=== PATIENT | female | born 1990 | race Hispanic/Latino ===

== ENCOUNTER 2017-10-06 16:18 | Inpatient (IN) | payer BC ==
--- NOTE | 2017-10-06 16:58 | ED PDOC ---
HPI: Abdomen Time Seen by Provider: 10/06/17 16:57 Chief Complaint (Nursing): Abdominal Pain Chief Complaint (Provider): abd pain History Per: Patient Additional Complaint(s): 27-year-old female presents to emergency department with epigastric abdominal pain associated with fever and diarrhea that started last night. Patient states she feels spasming pain to upper abdomen since yesterday. She denies any nausea or vomiting, no dysuria or hematuria. Patient states that she took her tetanus morning and it was 103. She took Advil at 1 PM today. PMD: none Past Medical History Reviewed: Historical Data, Nursing Documentation, Vital Signs Vital Signs: Last Vital Signs Temp 98.8 F 10/06/17 21:34 Pulse 106 H 10/06/17 21:34 Resp 16 10/06/17 21:34 BP 105/66 10/06/17 21:34 Pulse Ox 98 10/06/17 21:49 - Medical History PMH: GERD - Surgical History Other surgeries: left leg surgery - Family History Family History: States: No Known Family Hx - Living Arrangements Living Arrangements: With Family - Social History Current smoker - smoking cessation education provided: No Alcohol: Social Drugs: Denies - Home Medications Home Medications: Ambulatory Orders Medication Instructions Recorded DULoxetine [Cymbalta] 30 mg PO DAILY 10/06/17 - Allergies Allergies/Adverse Reactions: Allergies Allergy/AdvReac Type Severity Reaction Status Date / Time No Known Allergies Allergy Verified 10/06/17 16:39 Review of Systems ROS Statement: Except As Marked, All Systems Reviewed And Found Negative Constitutional: Positive for: Fever, Chills Cardiovascular: Negative for: Chest Pain Respiratory: Negative for: Cough Gastrointestinal: Positive for: Abdominal Pain, Diarrhea. Negative for: Nausea , Vomiting, Constipation Genitourinary Female: Negative for: Dysuria, Vaginal Discharge, Vaginal Bleeding Physical Exam - Reviewed Nursing Documentation Reviewed: Yes Vital Signs Reviewed: Yes - Physical Exam Appears: Positive for: Well, Non-toxic, No Acute Distress Skin: Positive for: Normal Color. Negative for: Rash Eye Exam: Positive for: Normal appearance Neck: Positive for: Normal Cardiovascular/Chest: Positive for: Regular Rate, Rhythm Respiratory: Positive for: Normal Breath Sounds Gastrointestinal/Abdominal: Positive for: Other (Moderate tenderness to epigastric region and right upper quadrant, no distention or guarding, no rebound, otherwise abdomen is nontender, normoactive bowel sounds in all 4 quadrant) Back: Negative for: L CVA Tenderness, R CVA Tenderness Extremity: Positive for: Normal ROM Neurologic/Psych: Positive for: Alert, Oriented - Laboratory Results Result Diagrams: 10/06/17 17:50 10/06/17 17:50 Urine POC: Negative - ECG O2 Sat by Pulse Oximetry: 98 Pulse Ox Interpretation: Normal - Other Rad CT abd and pelvis with IV contrast X-Ray: Read By Radiologist X-Ray Interpretation: see below CXR X-Ray: Interpreted by Me, Viewed By Me X-Ray Interpretation: no acute finding Medical Decision Making Medical Decision Makin27 year old with fever, diarrhea and abd pain, temp of 101.4 noted Plan: Urine dip and preg CBC CMP Lipase Blood culture VBG CXR CT abd and pelvis with IV contrast PO tylenol and motrin WBC count is 18.4, UTI noted, 1 gram IV rocephin given CT: FINDINGS: Lower thorax: There is minimal bibasilar atelectatic change or scarring. ABDOMEN: Liver: There is a heterogeneously enhancing mass lesion in the right lobe of the liver which is wellcircumscribed and measures a maximum of 8.8 cm. Recommend follow-up abdominal CT or MR in 6 months for patients with low risk of malignancy, multiphasic MR for average risk patients and core biopsy for high risk patients. Gallbladder and bile ducts: Normal. No calcified stones. No ductal dilation. Pancreas: Normal. No ductal dilation. Spleen: Normal. No splenomegaly. Adrenals: Normal. No mass. Kidneys and ureters: There is a low attenuation lesion of the left kidney that is too small to characterize measuring a maximum of 7 mm. Stomach and bowel: There is abnormal wall thickening mainly in the proximal colon and extending through the transverse colon, suspicious for nonspecific colitis. Appendix: The appendix is not visible. PELVIS: Bladder: Unremarkable as visualized. Reproductive: Unremarkable as visualized. ABDOMEN and PELVIS: Intraperitoneal space: Normal. No free air. No significant fluid collection. Bones/joints: No acute fracture. No dislocation. Soft tissues: Unremarkable. Vasculature: Normal. No abdominal aortic aneurysm. Lymph nodes: There are prominent right lower quadrant mesenteric lymph nodes consistent with mesenteric adenitis. IMPRESSION: 1. There are prominent right lower quadrant mesenteric lymph nodes consistent with mesenteric adenitis. 2. There is abnormal wall thickening mainly in the proximal colon and extending through the transverse colon, suspicious for nonspecific colitis. 3. There is a heterogeneously enhancing mass lesion in the right lobe of the liver which is well circumscribed and measures a maximum of 8.8 cm. Recommend follow-up abdominal CT or MR in 6 months for patients with low risk of malignancy, multiphasic MR for average risk patients and core biopsy for high risk patients. Above results were discussed with Dr. Peters and patient was made aware of results as well. Patient agrees with admission. Patient already received 1 g IV Rocephin, IV vancomycin also ordered. Case discussed with surgical assistant Dr. Noriega who will also see patient. Case also discussed withenterologist acting section chief Dr. Dean Quiles who will consult patient as well. Disposition - Clinical Impression Clinical Impression: Colitis, Urinary tract infection, Liver mass, Sepsis - Patient ED Disposition Is Patient to be Admitted: Yes - Disposition Disposition Time: 21:47 Condition: FAIR - Pt Status Changed To: Hospital Disposition Of: Inpatient - Admit Certification Admit to Inpatient:: After my assessment, the patient will require hospitalization for at least two midnights. This is because of the severity of symptoms shown, intensity of services needed, and/or the medical risk in this patient being treated as an outpatient. Results - Lab Results Lab Results: 10/06/17 10/06/17 10/06/17 17:50 17:50 17:50 WBC 18.4 H RBC 4.75 Hgb 13.1 Hct 38.9 MCV 81.8 MCH 27.5 MCHC 33.7 RDW 13.2 Plt Count 232 MPV 7.6 Neut % (Auto) 86.0 H Lymph % (Auto) 6.2 L [place] % (Auto) 7.5 Eos % (Auto) 0.1 Baso % (Auto) 0.2 Neut # (Auto) 15.8 H Lymph # (Auto) 1.1 [place] # (Auto) 1.4 H Eos # (Auto) 0.0 Baso # (Auto) 0.0 Neutrophils % (Manual) 75 Band Neutrophils % 3 H Lymphocytes % (Manual) 12 L Monocytes % (Manual) 10 Platelet Estimate Normal Hypochromasia (manual) Slight Microcytosis (manual) Slight pO2 38 VBG pH 7.42 VBG pCO2 35 L VBG HCO3 23.3 VBG Total CO2 23.8 VBG O2 Sat (Calc) 85.0 H VBG Base Excess -1.3 L VBG Potassium 3.4 L Sodium 131.0 L 137 Chloride 99.0 99 Glucose 102 Lactate 1.5 FiO2 21.0 Potassium 3.9 Carbon Dioxide 24 Anion Gap 18 BUN 8 Creatinine 0.8 Est GFR ( Amer) > 60 Est GFR (Non-Af Amer) > 60 Random Glucose 99 Calcium 9.2 Total Bilirubin 0.4 AST 29 ALT 35 Alkaline Phosphatase 444 H Total Protein 7.4 Albumin 4.2 Globulin 3.2 Albumin/Globulin Ratio 1.3 Lipase 68 Venous Blood Potassium 3.4 L Urine Color Urine Clarity Urine pH Ur Specific [place] Urine Protein Urine Glucose (UA) Urine Ketones Urine Blood Urine Nitrate Urine Bilirubin Urine Urobilinogen Ur Leukocyte Esterase Urine RBC (Auto) Urine Microscopic WBC Ur Squamous Epith Cells Urine Bacteria 10/06/17 17:12 WBC RBC Hgb Hct MCV MCH MCHC RDW Plt Count MPV Neut % (Auto) Lymph % (Auto) [place] % (Auto) Eos % (Auto) Baso % (Auto) Neut # (Auto) Lymph # (Auto) [place] # (Auto) Eos # (Auto) Baso # (Auto) Neutrophils % (Manual) Band Neutrophils % Lymphocytes % (Manual) Monocytes % (Manual) Platelet Estimate Hypochromasia (manual) Microcytosis (manual) pO2 VBG pH VBG pCO2 VBG HCO3 VBG Total CO2 VBG O2 Sat (Calc) VBG Base Excess VBG Potassium Sodium Chloride Glucose Lactate FiO2 Potassium Carbon Dioxide Anion Gap BUN Creatinine Est GFR ( Amer) Est GFR (Non-Af Amer) Random Glucose Calcium Total Bilirubin AST ALT Alkaline Phosphatase Total Protein Albumin Globulin Albumin/Globulin Ratio Lipase Venous Blood Potassium Urine Color Yellow Urine Clarity Cloudy Urine pH 6.0 Ur Specific [place] 1.018 Urine Protein Negative Urine Glucose (UA) Neg Urine Ketones 20 Urine Blood Negative Urine Nitrate Negative Urine Bilirubin Negative Urine Urobilinogen 0.2-1.0 Ur Leukocyte Esterase Large Urine RBC (Auto) 2 Urine Microscopic WBC 51 H Ur Squamous Epith Cells 14 H Urine Bacteria Occ H
[2017-10-06] MEDS ORDERED: Sodium Chloride 0.9% 1,000 ML IV STA ×2 (17:16→19:00)
[2017-10-06 18:08] LABS: BASO % 0.2 % (0.0-2.0); EOS % 0.1 % (0.0-4.0); HEMOGLOBIN 13.1 g/dL (12.0-16.0); LYMPH # 1.1 K/uL (1.0-4.3); LYMPH % 6.2 % (20.0-40.0); MEAN CELL VOLUME 81.8 fl (81.0-99.0); MEAN CORPUSCULAR HEMOGLOBIN 27.5 pg (27.0-31.0); MEAN CORPUSCULAR HGB CONC 33.7 g/dL (33.0-37.0); MEAN PLATELET VOLUME 7.6 fl (7.2-11.7); MONO # 1.4 K/uL (0.0-0.8); MONO % 7.5 % (0.0-10.0); NEUT # 15.8 K/uL (1.8-7.0); PLATELET COUNT 232 K/uL (130-400); RBC 4.75 Mil/uL (3.80-5.20); RED CELL DISTRIBUTION WIDTH 13.2 % (11.5-14.5); WHITE BLOOD COUNT 18.4 K/uL (4.8-10.8)
[2017-10-06 18:11] LABS: ALB/GLOB RATIO 1.3 (1.0-2.1); ALBUMIN 4.2 g/dL (3.5-5.0); ALT/SGPT 35 U/L (9-52); AST/SGOT 29 U/L (14-36); BLOOD UREA NITROGEN 8 mg/dl (7-17); CALCIUM 9.2 mg/dL (8.4-10.2); GFR AFRICAN-AMERICAN > 60; GFR NON-AFRICAN AMERICAN > 60; LIPASE 68 U/L (23-300)
[2017-10-06 18:13] LABS: SQUAMOUS EPITHIAL 14 /hpf (0-5); URINE BACTERIA OCC (<OCC); URINE BILIRUBIN NEGATIVE (NEGATIVE); URINE BLOOD NEGATIVE (NEGATIVE); URINE CLARITY CLOUDY (Clear); URINE COLOR YELLOW (YELLOW); URINE GLUCOSE (UA) NEG (Normal); URINE LEUKOCYTE ESTERASE LARGE Leu/uL (Negative); URINE PROTEIN NEGATIVE (NEGATIVE); URINE UROBILINOGEN 0.2-1.0 mg/dL (0.2-1.0)
[2017-10-06] MEDS ORDERED: Sodium Chloride 0.9% 50 ML IV ONE (18:24)
[2017-10-06] MEDS ORDERED: Iohexol 300 100 ML IJ ONE (18:24)
--- NOTE | 2017-10-06 18:48 | RAD ---
Date of service: 10/06/2017 HISTORY: fever COMPARISON: No prior. FINDINGS: LUNGS: No active pulmonary disease. PLEURA: No significant pleural effusion identified, no pneumothorax apparent. CARDIOVASCULAR: Normal. OSSEOUS STRUCTURES: No significant abnormalities. VISUALIZED UPPER ABDOMEN: Normal. OTHER FINDINGS: None. IMPRESSION: No acute cardiopulmonary disease appreciated.
[2017-10-06 18:54] LABS: VENOUS BLOOD GAS BASE EXCESS -1.3 mmol/L (0.0-2.0); VENOUS BLOOD GAS PCO2 35 mmHg (40-60); VENOUS BLOOD GAS PO2 38 mm/Hg (30-55); VENOUS BLOOD PH 7.42 (7.32-7.43)
[2017-10-06] MEDS ORDERED: cefTRIAXone (Rocephin) 1 gm Inj ONE (19:09)
[2017-10-06 19:38] LABS: BANDS 3 % (0-2); HYPOCHROMIC SLIGHT; LYMPHOCYTE 12 % (20-50); MICROCYTOSIS SLIGHT; MONOCYTE 10 % (0-10); NEUTROPHIL 75 % (42-75); PLATELET ESTIMATE NORMAL (NORMAL); TOTAL CELLS COUNTED 100
[2017-10-06] MEDS ORDERED: Vancomycin 1 g Inj ONE (21:44)
--- NOTE | 2017-10-06 23:03 | CP.PCM.CON ---
<Marilee Noriega - Last Filed: 10/06/17 23:15> History of Present Illness - History of Present Illness History of Present Illness: General Surgery - Dr. Varner 27yo F w/ hx of Fibromyalgia, GERD, presents with abdominal pain and diarrhea x2days. Pt states the pain started yesterday morning shortly after she woke up. She describes it as burning/cramping-like pains located in the epigastric region, 7/10, non-radiating, intermittently comes and goes about every 15 minutes. She has never had this before. She admits to associated diarrhea every 2-3 hours which she describes as watery brown stool. Pt denies any Nausea /Vomiting, Dysuria/Hematuria, SOB/Chest pain. She denies subjective Fever/ Chills but has Temp of 101.4 on arrival to ED. PMH: Fibromyalgia, GERD, Anxiety PSH: R breast implant for Hypomastia, Left leg surgery after a fall, EGD 2 months ago which was normal per Pt. Meds: Cymbalta, Omeprazole, Oral Contraceptive pill NKDA Social: No smoking, Occasional ETOH socially, No ilicit drug use Family: Both parents with history of liver hemangiomas, brother with brain aneurysm Pt was seen in the ED. Vitals w/ Tmax 101.4, HR 100-130, BP wnl. Labs significant for WBC of 18.2, Alk Phos 444. CT abdomen/pelvis with IV contrast shows colitis of the ascending and transverse colon, mesenteric adenitis, and an 8.8cm heterogenous well-circumscribed hepatic mass in the R lobe of the liver. Review of Systems - Review of Systems All systems: reviewed and no additional remarkable complaints except (as per HPI ) Past Patient History - Past Social History Alcohol: Social Drugs: Denies - PULMONARY Hx Asthma: Yes (exercise induced) - PSYCHIATRIC Hx Anxiety: Yes Hx Substance Use: No - SURGICAL HISTORY Other/Comment: Right breast implant. Left tibia sx due to severed muscles - ANESTHESIA Hx Anesthesia: Yes Meds Allergies/Adverse Reactions: Allergies Allergy/AdvReac Type Severity Reaction Status Date / Time No Known Allergies Allergy Verified 10/06/17 16:39 Physical Exam - Constitutional Appears: Well, No Acute Distress - Head Exam Head Exam: ATRAUMATIC, NORMAL INSPECTION, NORMOCEPHALIC - Eye Exam Eye Exam: Normal appearance - ENT Exam ENT Exam: Mucous Membranes Dry - Respiratory Exam Respiratory Exam: NORMAL BREATHING PATTERN. absent: Respiratory Distress - Cardiovascular Exam Cardiovascular Exam: Tachycardia, REGULAR RHYTHM - GI/Abdominal Exam GI & Abdominal Exam: Soft, Tenderness (mild ttp epigastric region). absent: Distended, Firm, Guarding, Hernia, Rebound, Rigid - Neurological Exam Neurological exam: Alert, Oriented x3 - Psychiatric Exam Psychiatric exam: Normal Affect, Normal Mood - Skin Skin Exam: Dry, Intact Results - Vital Signs Recent Vital Signs: Last Vital Signs Temp 98.8 F 10/06/17 22:55 Pulse 106 H 10/06/17 22:55 Resp 16 10/06/17 22:55 BP 105/66 10/06/17 22:55 Pulse Ox 98 10/06/17 22:02 - Labs Result Diagrams: 10/06/17 17:50 10/06/17 17:50 Labs: Laboratory Results - last 24 hr 10/06/17 10/06/17 10/06/17 17:12 17:50 17:50 WBC RBC Hgb Hct MCV MCH MCHC RDW Plt Count MPV Neut % (Auto) Lymph % (Auto) [place] % (Auto) Eos % (Auto) Baso % (Auto) Neut # (Auto) Lymph # (Auto) [place] # (Auto) Eos # (Auto) Baso # (Auto) Neutrophils % (Manual) Band Neutrophils % Lymphocytes % (Manual) Monocytes % (Manual) Platelet Estimate Hypochromasia (manual) Microcytosis (manual) pO2 38 VBG pH 7.42 VBG pCO2 35 L VBG HCO3 23.3 VBG Total CO2 23.8 VBG O2 Sat (Calc) 85.0 H VBG Base Excess -1.3 L VBG Potassium 3.4 L Sodium 137 131.0 L Chloride 99 99.0 Glucose 102 Lactate 1.5 FiO2 21.0 Potassium 3.9 Carbon Dioxide 24 Anion Gap 18 BUN 8 Creatinine 0.8 Est GFR ( Amer) > 60 Est GFR (Non-Af Amer) > 60 Random Glucose 99 Calcium 9.2 Total Bilirubin 0.4 AST 29 ALT 35 Alkaline Phosphatase 444 H Total Protein 7.4 Albumin 4.2 Globulin 3.2 Albumin/Globulin Ratio 1.3 Lipase 68 Venous Blood Potassium 3.4 L Urine Color Yellow Urine Clarity Cloudy Urine pH 6.0 Ur Specific [place] 1.018 Urine Protein Negative Urine Glucose (UA) Neg Urine Ketones 20 Urine Blood Negative Urine Nitrate Negative Urine Bilirubin Negative Urine Urobilinogen 0.2-1.0 Ur Leukocyte Esterase Large Urine RBC (Auto) 2 Urine Microscopic WBC 51 H Ur Squamous Epith Cells 14 H Urine Bacteria Occ H 10/06/17 17:50 WBC 18.4 H RBC 4.75 Hgb 13.1 Hct 38.9 MCV 81.8 MCH 27.5 MCHC 33.7 RDW 13.2 Plt Count 232 MPV 7.6 Neut % (Auto) 86.0 H Lymph % (Auto) 6.2 L [place] % (Auto) 7.5 Eos % (Auto) 0.1 Baso % (Auto) 0.2 Neut # (Auto) 15.8 H Lymph # (Auto) 1.1 [place] # (Auto) 1.4 H Eos # (Auto) 0.0 Baso # (Auto) 0.0 Neutrophils % (Manual) 75 Band Neutrophils % 3 H Lymphocytes % (Manual) 12 L Monocytes % (Manual) 10 Platelet Estimate Normal Hypochromasia (manual) Slight Microcytosis (manual) Slight pO2 VBG pH VBG pCO2 VBG HCO3 VBG Total CO2 VBG O2 Sat (Calc) VBG Base Excess VBG Potassium Sodium Chloride Glucose Lactate FiO2 Potassium Carbon Dioxide Anion Gap BUN Creatinine Est GFR ( Amer) Est GFR (Non-Af Amer) Random Glucose Calcium Total Bilirubin AST ALT Alkaline Phosphatase Total Protein Albumin Globulin Albumin/Globulin Ratio Lipase Venous Blood Potassium Urine Color Urine Clarity Urine pH Ur Specific [place] Urine Protein Urine Glucose (UA) Urine Ketones Urine Blood Urine Nitrate Urine Bilirubin Urine Urobilinogen Ur Leukocyte Esterase Urine RBC (Auto) Urine Microscopic WBC Ur Squamous Epith Cells Urine Bacteria - Imaging and Cardiology CT scan - abdomen Status: Image reviewed by me, Report reviewed by me Assessment & Plan - Assessment and Plan (Free Text) Assessment: 27yo F w/ colitis and 8.8cm R hepatic mass -Admitted to medical service -Continue IVF, ABx, Pain control for colitis -No surgical intervention needed at this time -Recommend MRI to further characterize liver lesion -Recommend stopping OCPs given likelihood of hepatic adenoma -If pt remains asymptomatic, can follow w/ repeat imaging in 3-6months DW Dr. Telly Noriega PGY4 <Rosie Varner - Last Filed: 10/07/17 11:03> Meds - Medications Medications: Current Medications Acetaminophen (Tylenol 325mg Tab) 650 mg PO Q4 PRN PRN Reason: Fever >100.4 F Last Admin: 10/07/17 05:12 Dose: 650 mg Acetaminophen/Butalbital/Caffeine (Fioricet) 1 tab PO Q4 PRN PRN Reason: Headache Duloxetine HCl (Cymbalta) 30 mg PO DAILY [facility] Potassium Chloride (Potassium Chloride 20 Meq/100 Ml) 100 mls @ 50 mls/hr IVPB Q2 KAELYN Stop: 10/07/17 11:59 Last Admin: 10/07/17 10:00 Dose: 50 mls/hr Metronidazole (Flagyl 500mg/100ml Ns) 100 mls @ 100 mls/hr IVPB Q8 KAELYN PRN Reason: Protocol Potassium Chloride/Dextrose/Sod Cl (Potassium Chl 20 Meq In D5-1/2ns) 1,000 mls @ 125 mls/hr IV .Q8H [facility] Stop: 10/08/17 08:19 Last Admin: 10/07/17 09:00 Dose: 125 mls/hr Ciprofloxacin (Cipro 400mg/200ml Dsw) 400 mg in 200 mls @ 200 mls/hr IVPB Q12 KAELYN PRN Reason: Protocol Morphine Sulfate (Morphine) 2 mg IVP Q4 PRN PRN Reason: Pain, moderate (4-7) Last Admin: 10/07/17 06:48 Dose: 2 mg Pantoprazole Sodium (Protonix Inj) 40 mg IVP DAILY [facility] Results - Vital Signs Recent Vital Signs: Last Vital Signs Temp 98.3 F 10/07/17 08:00 Pulse 102 H 10/07/17 08:00 Resp 20 10/07/17 08:00 BP 105/70 10/07/17 08:00 Pulse Ox 98 10/07/17 08:00 - Labs Result Diagrams: 10/07/17 04:20 10/07/17 04:20 Labs: Laboratory Results - last 24 hr 10/06/17 10/06/17 10/06/17 17:12 17:50 17:50 WBC RBC Hgb Hct MCV MCH MCHC RDW Plt Count MPV Neut % (Auto) Lymph % (Auto) [place] % (Auto) Eos % (Auto) Baso % (Auto) Neut # (Auto) Lymph # (Auto) [place] # (Auto) Eos # (Auto) Baso # (Auto) Neutrophils % (Manual) Band Neutrophils % Lymphocytes % (Manual) Monocytes % (Manual) Platelet Estimate Hypochromasia (manual) Microcytosis (manual) pO2 38 VBG pH 7.42 VBG pCO2 35 L VBG HCO3 23.3 VBG Total CO2 23.8 VBG O2 Sat (Calc) 85.0 H VBG Base Excess -1.3 L VBG Potassium 3.4 L Sodium 137 131.0 L Chloride 99 99.0 Glucose 102 Lactate 1.5 FiO2 21.0 Potassium 3.9 Carbon Dioxide 24 Anion Gap 18 BUN 8 Creatinine 0.8 Est GFR ( Amer) > 60 Est GFR (Non-Af Amer) > 60 Random Glucose 99 Calcium 9.2 Total Bilirubin 0.4 AST 29 ALT 35 Alkaline Phosphatase 444 H Total Protein 7.4 Albumin 4.2 Globulin 3.2 Albumin/Globulin Ratio 1.3 Lipase 68 Venous Blood Potassium 3.4 L Urine Color Yellow Urine Clarity Cloudy Urine pH 6.0 Ur Specific [place] 1.018 Urine Protein Negative Urine Glucose (UA) Neg Urine Ketones 20 Urine Blood Negative Urine Nitrate Negative Urine Bilirubin Negative Urine Urobilinogen 0.2-1.0 Ur Leukocyte Esterase Large Urine RBC (Auto) 2 Urine Microscopic WBC 51 H Ur Squamous Epith Cells 14 H Urine Bacteria Occ H C. difficile Ag & Toxin 10/06/17 10/07/17 10/07/17 17:50 04:20 04:20 WBC 18.4 H 12.2 H RBC 4.75 4.16 Hgb 13.1 11.5 L Hct 38.9 34.2 MCV 81.8 82.2 MCH 27.5 27.6 MCHC 33.7 33.6 RDW 13.2 13.3 Plt Count 232 185 MPV 7.6 7.5 Neut % (Auto) 86.0 H 82.8 H Lymph % (Auto) 6.2 L 7.6 L [place] % (Auto) 7.5 9.1 Eos % (Auto) 0.1 0.2 Baso % (Auto) 0.2 0.3 Neut # (Auto) 15.8 H 10.1 H Lymph # (Auto) 1.1 0.9 L [place] # (Auto) 1.4 H 1.1 H Eos # (Auto) 0.0 0.0 Baso # (Auto) 0.0 0.0 Neutrophils % (Manual) 75 Band Neutrophils % 3 H Lymphocytes % (Manual) 12 L Monocytes % (Manual) 10 Platelet Estimate Normal Hypochromasia (manual) Slight Microcytosis (manual) Slight pO2 VBG pH VBG pCO2 VBG HCO3 VBG Total CO2 VBG O2 Sat (Calc) VBG Base Excess VBG Potassium Sodium 136 Chloride 102 Glucose Lactate FiO2 Potassium 3.3 L Carbon Dioxide 22 Anion Gap 15 BUN 6 L Creatinine 0.7 Est GFR ( Amer) > 60 Est GFR (Non-Af Amer) > 60 Random Glucose 136 H Calcium 8.2 L Total Bilirubin 0.3 AST 28 ALT 32 Alkaline Phosphatase 321 H D Total Protein 6.0 L Albumin 3.3 L D Globulin 2.7 Albumin/Globulin Ratio 1.2 Lipase Venous Blood Potassium Urine Color Urine Clarity Urine pH Ur Specific [place] Urine Protein Urine Glucose (UA) Urine Ketones Urine Blood Urine Nitrate Urine Bilirubin Urine Urobilinogen Ur Leukocyte Esterase Urine RBC (Auto) Urine Microscopic WBC Ur Squamous Epith Cells Urine Bacteria C. difficile Ag & Toxin 10/07/17 08:51 WBC RBC Hgb Hct MCV MCH MCHC RDW Plt Count MPV Neut % (Auto) Lymph % (Auto) [place] % (Auto) Eos % (Auto) Baso % (Auto) Neut # (Auto) Lymph # (Auto) [place] # (Auto) Eos # (Auto) Baso # (Auto) Neutrophils % (Manual) Band Neutrophils % Lymphocytes % (Manual) Monocytes % (Manual) Platelet Estimate Hypochromasia (manual) Microcytosis (manual) pO2 VBG pH VBG pCO2 VBG HCO3 VBG Total CO2 VBG O2 Sat (Calc) VBG Base Excess VBG Potassium Sodium Chloride Glucose Lactate FiO2 Potassium Carbon Dioxide Anion Gap BUN Creatinine Est GFR ( Amer) Est GFR (Non-Af Amer) Random Glucose Calcium Total Bilirubin AST ALT Alkaline Phosphatase Total Protein Albumin Globulin Albumin/Globulin Ratio Lipase Venous Blood Potassium Urine Color Urine Clarity Urine pH Ur Specific [place] Urine Protein Urine Glucose (UA) Urine Ketones Urine Blood Urine Nitrate Urine Bilirubin Urine Urobilinogen Ur Leukocyte Esterase Urine RBC (Auto) Urine Microscopic WBC Ur Squamous Epith Cells Urine Bacteria C. difficile Ag & Toxin Negative Assessment & Plan - Assessment and Plan (Free Text) Plan: I am seeing Ms. Johnson at the request of the medical team for evaluation of acute abdominal pain concerning for colitis and incidental finding of 8cm right liver mass. I personally saw and examined the patient with the resident staff and agree with the above assessment and plan. I personally reviewed the available diagnostic images and imaging reports. 8cm large heterogenous liver mass, appears solid and walled. inflammatory changes of colon noted on right and tranv. colon with several bouts of diarrhea and elevated WBC. Treat for infectious colitis. Stool studies. NPO, BS antibiotics, IVF , strict in and out. MRCP to further evaluate liver mass, can be done as outpatient as it does not seem to be the cause of her current symptoms. - Date & Time Date: 10/07/17
[2017-10-06] MEDS ORDERED: Lactated Ringer's 1,000 ML IV SCH (23:45)
[2017-10-07] MEDS ORDERED: Oxycodone/Acetaminophen 5/325 mg Tab PO PRN (00:13)
[2017-10-07] MEDS ORDERED: Dextrose 5%/0.45% NS 1,000 ML IV SCH (00:15)
[2017-10-07] MEDS ORDERED: HYDROmorphone 1 mg/ml ISec IVP PRN (00:17)
[2017-10-07 05:41] LABS: BASO % 0.3 % (0.0-2.0); EOS % 0.2 % (0.0-4.0); HEMOGLOBIN 11.5 g/dL (12.0-16.0); LYMPH # 0.9 K/uL (1.0-4.3); LYMPH % 7.6 % (20.0-40.0); MEAN CELL VOLUME 82.2 fl (81.0-99.0); MEAN CORPUSCULAR HEMOGLOBIN 27.6 pg (27.0-31.0); MEAN CORPUSCULAR HGB CONC 33.6 g/dL (33.0-37.0); MEAN PLATELET VOLUME 7.5 fl (7.2-11.7); MONO # 1.1 K/uL (0.0-0.8); MONO % 9.1 % (0.0-10.0); NEUT # 10.1 K/uL (1.8-7.0); NEUT % 82.8 % (50.0-75.0); RBC 4.16 Mil/uL (3.80-5.20); RED CELL DISTRIBUTION WIDTH 13.3 % (11.5-14.5); WHITE BLOOD COUNT 12.2 K/uL (4.8-10.8)
[2017-10-07 06:40] LABS: ALB/GLOB RATIO 1.2 (1.0-2.1); ALBUMIN 3.3 g/dL (3.5-5.0); ALT/SGPT 32 U/L (9-52); AST/SGOT 28 U/L (14-36); BLOOD UREA NITROGEN 6 mg/dl (7-17); CALCIUM 8.2 mg/dL (8.4-10.2); GFR AFRICAN-AMERICAN > 60; GFR NON-AFRICAN AMERICAN > 60
--- NOTE | 2017-10-07 07:47 | CP.PCM.PN ---
<RománAnnelise - Last Filed: 10/07/17 07:44> Subjective - Date & Time of Evaluation Date of Evaluation: 10/07/17 Time of Evaluation: 07:44 - Subjective Subjective: Surgery Pt seen and examined. Continues to have watery diarrhea. C/o headache. Abdominal pain improved. Voiding freely. Ambulates. Pt had fever of 101.9 at 5AM. Denies nausea, CP , SOB. Objective - Vital Signs/Intake and Output Vital Signs (last 24 hours): Temp Pulse Resp BP Pulse Ox 99.5 F 128 H 18 106/69 98 10/07/17 06:12 10/07/17 05:00 10/07/17 05:00 10/07/17 05:00 10/07/17 05:00 - Medications Medications: Current Medications Acetaminophen (Tylenol 325mg Tab) 650 mg PO Q4 PRN PRN Reason: Fever >100.4 F Last Admin: 10/07/17 05:12 Dose: 650 mg Duloxetine HCl (Cymbalta) 30 mg PO DAILY [facility] Hydromorphone HCl (Dilaudid) 2 mg IVP Q4 PRN PRN Reason: Pain, severe (8-10) Lactated Ringer's (Lactated Ringer's) 1,000 mls @ 100 mls/hr IV .Q10H [facility] Last Admin: 10/07/17 00:40 Dose: 100 mls/hr Ceftriaxone Sodium 1 gm/ (Sodium Chloride) 100 mls @ 100 mls/hr IVPB DAILY [facility] PRN Reason: Protocol Vancomycin HCl 500 mg/ Sodium (Chloride) 100 mls @ 100 mls/hr IVPB Q12 [facility] PRN Reason: Protocol Potassium Chloride (Potassium Chloride 20 Meq/100 Ml) 100 mls @ 50 mls/hr IVPB Q2 [facility] Stop: 10/07/17 11:59 Morphine Sulfate (Morphine) 2 mg IVP Q4 PRN PRN Reason: Pain, moderate (4-7) Last Admin: 10/07/17 06:48 Dose: 2 mg Oxycodone/Acetaminophen (Percocet 5/325 Mg Tab) 1 tab PO Q4 PRN PRN Reason: Pain, moderate (4-7) Stop: 10/10/17 00:14 Pantoprazole Sodium (Protonix Inj) 40 mg IVP DAILY [facility] - Labs Labs: 10/07/17 04:20 10/07/17 04:20 - Constitutional Appears: No Acute Distress - Head Exam Head Exam: ATRAUMATIC, NORMAL INSPECTION, NORMOCEPHALIC - Eye Exam Eye Exam: EOMI, Normal appearance, PERRL Pupil Exam: NORMAL ACCOMODATION, PERRL - ENT Exam ENT Exam: Mucous Membranes Moist, Normal Exam - Neck Exam Neck Exam: Full ROM, Normal Inspection. absent: Lymphadenopathy - Respiratory Exam Respiratory Exam: NORMAL BREATHING PATTERN - Cardiovascular Exam Cardiovascular Exam: Tachycardia. absent: Murmur - GI/Abdominal Exam GI & Abdominal Exam: Soft, Tenderness. absent: Distended, Firm, Guarding, Rigid , Hernia, Organomegaly Additional comments: Epigastric TTP. - Extremities Exam Extremities Exam: Full ROM, Normal Capillary Refill, Normal Inspection. absent : Joint Swelling, Pedal Edema - Neurological Exam Neurological Exam: Alert, Awake, CN II-XII Intact, Normal Gait, Oriented x3 - Psychiatric Exam Psychiatric exam: Normal Affect, Normal Mood - Skin Skin Exam: Dry, Intact, Normal Color, Warm Assessment and Plan - Assessment and Plan (Free Text) Assessment: 27yo F w/ Proximal colitis and 8.8cm R hepatic mass : Febrile 101.9 Tachycardic 104-131 Leukocytosis down to 12.2 from 18.4 -Medical management -Continue IVF, ABx, Pain control for colitis -No surgical intervention needed at this time -Recommend MRI to further characterize liver lesion -Recommend stopping OCPs given likelihood of hepatic adenoma -If pt remains asymptomatic, can follow w/ repeat imaging in 3-6months -GI f/u Will DW Dr. Varner <Rosie Varner - Last Filed: 10/07/17 11:12> Objective - Vital Signs/Intake and Output Vital Signs (last 24 hours): Temp Pulse Resp BP Pulse Ox 98.3 F 102 H 20 105/70 98 10/07/17 08:00 10/07/17 08:00 10/07/17 08:00 10/07/17 08:00 10/07/17 08:00 - Medications Medications: Current Medications Acetaminophen (Tylenol 325mg Tab) 650 mg PO Q4 PRN PRN Reason: Fever >100.4 F Last Admin: 10/07/17 05:12 Dose: 650 mg Acetaminophen/Butalbital/Caffeine (Fioricet) 1 tab PO Q4 PRN PRN Reason: Headache Duloxetine HCl (Cymbalta) 30 mg PO DAILY [facility] Potassium Chloride (Potassium Chloride 20 Meq/100 Ml) 100 mls @ 50 mls/hr IVPB Q2 [facility] Stop: 10/07/17 11:59 Last Admin: 10/07/17 10:00 Dose: 50 mls/hr Metronidazole (Flagyl 500mg/100ml Ns) 100 mls @ 100 mls/hr IVPB Q8 [facility] PRN Reason: Protocol Potassium Chloride/Dextrose/Sod Cl (Potassium Chl 20 Meq In D5-1/2ns) 1,000 mls @ 125 mls/hr IV .Q8H [facility] Stop: 10/08/17 08:19 Last Admin: 10/07/17 09:00 Dose: 125 mls/hr Ciprofloxacin (Cipro 400mg/200ml Dsw) 400 mg in 200 mls @ 200 mls/hr IVPB Q12 [facility] PRN Reason: Protocol Morphine Sulfate (Morphine) 2 mg IVP Q4 PRN PRN Reason: Pain, moderate (4-7) Last Admin: 10/07/17 06:48 Dose: 2 mg Pantoprazole Sodium (Protonix Inj) 40 mg IVP DAILY [facility] - Labs Labs: 10/07/17 04:20 10/07/17 04:20 Assessment and Plan - Assessment and Plan (Free Text) Plan: See addendum in H+P for recommendations.
--- NOTE | 2017-10-07 08:14 | CP.PCM.HP ---
History of Present Illness - History of Present Illness History of Present Illness: 27 YR OLD FEMALE ADMITTED WITH ABDOMINAL PAIN AND WATERY DIARRHEA X SEVERAL DAYS.WORKUP IN ER IS REMARKABLE FOR A LIVER MASS AND COLITIS. PMX-HEADACHES AND PELVIC PAINS FM HX-BOTH PARENTS HAVE LIVER MASSES Present on Admission - Present on Admission Any Indicators Present on Admission: No Past Patient History - Past Medical History & Family History Past Medical History?: Yes - Past Social History Smoking Status: Never Smoked - CARDIAC Hx Cardiac Disorders: No - PULMONARY Hx Respiratory Disorders: Yes Hx Asthma: Yes (exercise induced) - NEUROLOGICAL Hx Neurological Disorder: Yes Other/Comment: fibromyalgia - HEENT Hx HEENT Problems: No - RENAL Hx Chronic Kidney Disease: No - ENDOCRINE/METABOLIC Hx Endocrine Disorders: No - HEMATOLOGICAL/ONCOLOGICAL Hx Blood Disorders: No - INTEGUMENTARY Hx Dermatological Problems: No - MUSCULOSKELETAL/RHEUMATOLOGICAL Hx Musculoskeletal Disorders: No Hx Falls: No - GASTROINTESTINAL Hx Gastrointestinal Disorders: Yes Hx Gastroesophageal Reflux: Yes - GENITOURINARY/GYNECOLOGICAL Hx Genitourinary Disorders: No - PSYCHIATRIC Hx Psychophysiologic Disorder: Yes Hx Anxiety: Yes Hx Substance Use: No - SURGICAL HISTORY Hx Surgeries: Yes Other/Comment: Right breast implant. Left tibia sx due to severed muscles - ANESTHESIA Hx Anesthesia: Yes Meds Allergies/Adverse Reactions: Allergies Allergy/AdvReac Type Severity Reaction Status Date / Time No Known Allergies Allergy Verified 10/06/17 16:39 Physical Exam - Constitutional Appears: In Acute Distress - Head Exam Head Exam: ATRAUMATIC, NORMAL INSPECTION, NORMOCEPHALIC - Eye Exam Eye Exam: EOMI, Normal appearance, PERRL Pupil Exam: NORMAL ACCOMODATION, PERRL - ENT Exam ENT Exam: Mucous Membranes Moist, Normal Exam - Neck Exam Neck exam: Positive for: Normal Inspection - Respiratory Exam Respiratory Exam: Clear to Auscultation Bilateral, NORMAL BREATHING PATTERN - Cardiovascular Exam Cardiovascular Exam: REGULAR RHYTHM - GI/Abdominal Exam GI & Abdominal Exam: Normal Bowel Sounds, Soft, Tenderness - Rectal Exam Rectal Exam: NORMAL INSPECTION - Extremities Exam Extremities exam: Positive for: normal inspection - Back Exam Back exam: NORMAL INSPECTION - Neurological Exam Neurological exam: Alert, CN II-XII Intact, Normal Gait, Oriented x3, Reflexes Normal - Psychiatric Exam Psychiatric exam: Normal Affect, Normal Mood - Skin Skin Exam: Dry, Intact, Normal Color, Warm Results - Vital Signs Recent Vital Signs: Last Vital Signs Temp 98.3 F 07/20/18 08:00 Pulse 102 H 10/07/17 08:00 Resp 20 10/07/17 08:00 BP 105/70 10/07/17 08:00 Pulse Ox 98 10/07/17 08:00 - Labs Result Diagrams: 10/07/17 04:20 10/07/17 04:20 Labs: Laboratory Results - last 24 hr 10/06/17 10/06/17 10/06/17 17:12 17:50 17:50 WBC RBC Hgb Hct MCV MCH MCHC RDW Plt Count MPV Neut % (Auto) Lymph % (Auto) [place] % (Auto) Eos % (Auto) Baso % (Auto) Neut # (Auto) Lymph # (Auto) [place] # (Auto) Eos # (Auto) Baso # (Auto) Neutrophils % (Manual) Band Neutrophils % Lymphocytes % (Manual) Monocytes % (Manual) Platelet Estimate Hypochromasia (manual) Microcytosis (manual) pO2 38 VBG pH 7.42 VBG pCO2 35 L VBG HCO3 23.3 VBG Total CO2 23.8 VBG O2 Sat (Calc) 85.0 H VBG Base Excess -1.3 L VBG Potassium 3.4 L Sodium 137 131.0 L Chloride 99 99.0 Glucose 102 Lactate 1.5 FiO2 21.0 Potassium 3.9 Carbon Dioxide 24 Anion Gap 18 BUN 8 Creatinine 0.8 Est GFR ( Amer) > 60 Est GFR (Non-Af Amer) > 60 Random Glucose 99 Calcium 9.2 Total Bilirubin 0.4 AST 29 ALT 35 Alkaline Phosphatase 444 H Total Protein 7.4 Albumin 4.2 Globulin 3.2 Albumin/Globulin Ratio 1.3 Lipase 68 Venous Blood Potassium 3.4 L Urine Color Yellow Urine Clarity Cloudy Urine pH 6.0 Ur Specific [place] 1.018 Urine Protein Negative Urine Glucose (UA) Neg Urine Ketones 20 Urine Blood Negative Urine Nitrate Negative Urine Bilirubin Negative Urine Urobilinogen 0.2-1.0 Ur Leukocyte Esterase Large Urine RBC (Auto) 2 Urine Microscopic WBC 51 H Ur Squamous Epith Cells 14 H Urine Bacteria Occ H 10/06/17 10/07/17 10/07/17 17:50 04:20 04:20 WBC 18.4 H 12.2 H RBC 4.75 4.16 Hgb 13.1 11.5 L Hct 38.9 34.2 MCV 81.8 82.2 MCH 27.5 27.6 MCHC 33.7 33.6 RDW 13.2 13.3 Plt Count 232 185 MPV 7.6 7.5 Neut % (Auto) 86.0 H 82.8 H Lymph % (Auto) 6.2 L 7.6 L [place] % (Auto) 7.5 9.1 Eos % (Auto) 0.1 0.2 Baso % (Auto) 0.2 0.3 Neut # (Auto) 15.8 H 10.1 H Lymph # (Auto) 1.1 0.9 L [place] # (Auto) 1.4 H 1.1 H Eos # (Auto) 0.0 0.0 Baso # (Auto) 0.0 0.0 Neutrophils % (Manual) 75 Band Neutrophils % 3 H Lymphocytes % (Manual) 12 L Monocytes % (Manual) 10 Platelet Estimate Normal Hypochromasia (manual) Slight Microcytosis (manual) Slight pO2 VBG pH VBG pCO2 VBG HCO3 VBG Total CO2 VBG O2 Sat (Calc) VBG Base Excess VBG Potassium Sodium 136 Chloride 102 Glucose Lactate FiO2 Potassium 3.3 L Carbon Dioxide 22 Anion Gap 15 BUN 6 L Creatinine 0.7 Est GFR ( Amer) > 60 Est GFR (Non-Af Amer) > 60 Random Glucose 136 H Calcium 8.2 L Total Bilirubin 0.3 AST 28 ALT 32 Alkaline Phosphatase 321 H D Total Protein 6.0 L Albumin 3.3 L D Globulin 2.7 Albumin/Globulin Ratio 1.2 Lipase Venous Blood Potassium Urine Color Urine Clarity Urine pH Ur Specific [place] Urine Protein Urine Glucose (UA) Urine Ketones Urine Blood Urine Nitrate Urine Bilirubin Urine Urobilinogen Ur Leukocyte Esterase Urine RBC (Auto) Urine Microscopic WBC Ur Squamous Epith Cells Urine Bacteria Assessment & Plan - Assessment and Plan (Free Text) Assessment: ACUTE COLITIS LIVER MASS HEADACHES Plan: IV FLUIDS AND ANTIBIOTICS GASTRO AND SURGICAL EVAL PT DOES NOT WANT ANY FORMS OF BIOPSY PROCEDURES FOR LIVER MASS ANALGESICS FOR PAIN SEPTIC WORKUP LIQUID DIET
[2017-10-07] MEDS ORDERED: Apap-Butalbital-Caffeine 325-50-40mg Tab PO PRN (08:18)
[2017-10-07] MEDS: Potassium Ch 20mEq in D5-1/2NS 1,000 ML IV SCH ×2 (09:00→16:47)
[2017-10-07] MEDS: Potassium Chloride 20 mEq 100 ML IVPB SCH ×3 (09:18→12:18)
[2017-10-07] MEDS: metroNIDAZOLE 500mg/100ml NS 100 ML IVPB SCH ×2 (09:22→17:06)
--- NOTE | 2017-10-07 09:28 | CP.PCM.CON ---
History of Present Illness - History of Present Illness History of Present Illness: PGY5 Initial GI Consult Brenda Johnson is a 27yo F w/ hx of Fibromyalgia, GERD, presents with abdominal pain and diarrhea x2days. Pt states the pain started yesterday morning. She describes it as a non-radiating sharp and burning pain in the epigastric region. She notes its 7/10 and intermittently. She also notes having nausea but denies any vomiting. She also has associated diarrhea every 2-3 hours which she describes as watery brown stool without blood. CT abd realed: hepatic lesion in the right lobe, 8.8cm heterogenous well-circum mass, transverse and ascending colitis with mesenteric adenitis. She does admit to OCP use for 13 years. Pt also notes having chronic GERD for which she had an EGD 2 months prior with no significant findings. Denies any recent travel, sick contacts or recent abx use. PMH: Fibromyalgia, GERD, Anxiety PSH: R breast implant for Hypomastia, Left leg surgery after a fall, EGD 2 months ago which was normal per Pt. Social: No smoking, Occasional ETOH socially, No ilicit drug use Family: Both parents with history of liver hemangiomas, brother with brain aneurysm ROS: 12 point ROS were neg other than above Past Patient History - Past Medical History & Family History Past Medical History?: Yes - Past Social History Smoking Status: Never Smoked - CARDIAC Hx Cardiac Disorders: No - PULMONARY Hx Respiratory Disorders: Yes Hx Asthma: Yes (exercise induced) - NEUROLOGICAL Hx Neurological Disorder: Yes Other/Comment: fibromyalgia - HEENT Hx HEENT Problems: No - RENAL Hx Chronic Kidney Disease: No - ENDOCRINE/METABOLIC Hx Endocrine Disorders: No - HEMATOLOGICAL/ONCOLOGICAL Hx Blood Disorders: No - INTEGUMENTARY Hx Dermatological Problems: No - MUSCULOSKELETAL/RHEUMATOLOGICAL Hx Musculoskeletal Disorders: No Hx Falls: No - GASTROINTESTINAL Hx Gastrointestinal Disorders: Yes Hx Gastroesophageal Reflux: Yes - GENITOURINARY/GYNECOLOGICAL Hx Genitourinary Disorders: No - PSYCHIATRIC Hx Psychophysiologic Disorder: Yes Hx Anxiety: Yes Hx Substance Use: No - SURGICAL HISTORY Hx Surgeries: Yes Other/Comment: Right breast implant. Left tibia sx due to severed muscles - ANESTHESIA Hx Anesthesia: Yes Meds Allergies/Adverse Reactions: Allergies Allergy/AdvReac Type Severity Reaction Status Date / Time No Known Allergies Allergy Verified 10/06/17 16:39 - Medications Medications: Current Medications Acetaminophen (Tylenol 325mg Tab) 650 mg PO Q4 PRN PRN Reason: Fever >100.4 F Last Admin: 10/07/17 05:12 Dose: 650 mg Acetaminophen/Butalbital/Caffeine (Fioricet) 1 tab PO Q4 PRN PRN Reason: Headache Duloxetine HCl (Cymbalta) 30 mg PO DAILY [facility] Ceftriaxone Sodium 1 gm/ (Sodium Chloride) 100 mls @ 100 mls/hr IVPB DAILY [facility] PRN Reason: Protocol Vancomycin HCl 500 mg/ Sodium (Chloride) 100 mls @ 100 mls/hr IVPB Q12 [facility] PRN Reason: Protocol Potassium Chloride (Potassium Chloride 20 Meq/100 Ml) 100 mls @ 50 mls/hr IVPB Q2 [facility] Stop: 10/07/17 11:59 Metronidazole (Flagyl 500mg/100ml Ns) 100 mls @ 100 mls/hr IVPB Q8 [facility] PRN Reason: Protocol Potassium Chloride/Dextrose/Sod Cl (Potassium Chl 20 Meq In D5-1/2ns) 1,000 mls @ 125 mls/hr IV .Q8H [facility] Stop: 10/08/17 08:19 Morphine Sulfate (Morphine) 2 mg IVP Q4 PRN PRN Reason: Pain, moderate (4-7) Last Admin: 10/07/17 06:48 Dose: 2 mg Pantoprazole Sodium (Protonix Inj) 40 mg IVP DAILY [facility] Physical Exam - Constitutional Appears: Well, No Acute Distress - Head Exam Head Exam: ATRAUMATIC, NORMOCEPHALIC - Eye Exam Eye Exam: Normal appearance - ENT Exam ENT Exam: Mucous Membranes Moist, Normal Exam - Neck Exam Neck exam: Positive for: Normal Inspection - Respiratory Exam Respiratory Exam: Clear to Auscultation Bilateral, NORMAL BREATHING PATTERN. absent: Rales, Rhonchi, Wheezes, Respiratory Distress - Cardiovascular Exam Cardiovascular Exam: REGULAR RHYTHM, +S1, +S2 - GI/Abdominal Exam GI & Abdominal Exam: Normal Bowel Sounds, Soft, Tenderness (epigastric). absent : Diminished Bowel Sounds, Distended, Firm, Guarding, Hernia, Organomegaly - Neurological Exam Neurological exam: Alert, Oriented x3 - Psychiatric Exam Psychiatric exam: Normal Affect, Normal Mood - Skin Skin Exam: Dry, Intact, Normal Color, Warm Results - Vital Signs Recent Vital Signs: Last Vital Signs Temp 98.3 F 10/07/17 08:00 Pulse 102 H 10/07/17 08:00 Resp 20 10/07/17 08:00 BP 105/70 10/07/17 08:00 Pulse Ox 98 10/07/17 08:00 - Labs Result Diagrams: 10/07/17 04:20 10/07/17 04:20 Labs: Laboratory Results - last 24 hr 10/06/17 10/06/17 10/06/17 17:12 17:50 17:50 WBC RBC Hgb Hct MCV MCH MCHC RDW Plt Count MPV Neut % (Auto) Lymph % (Auto) Saline % (Auto) Eos % (Auto) Baso % (Auto) Neut # (Auto) Lymph # (Auto) Saline # (Auto) Eos # (Auto) Baso # (Auto) Neutrophils % (Manual) Band Neutrophils % Lymphocytes % (Manual) Monocytes % (Manual) Platelet Estimate Hypochromasia (manual) Microcytosis (manual) pO2 38 VBG pH 7.42 VBG pCO2 35 L VBG HCO3 23.3 VBG Total CO2 23.8 VBG O2 Sat (Calc) 85.0 H VBG Base Excess -1.3 L VBG Potassium 3.4 L Sodium 137 131.0 L Chloride 99 99.0 Glucose 102 Lactate 1.5 FiO2 21.0 Potassium 3.9 Carbon Dioxide 24 Anion Gap 18 BUN 8 Creatinine 0.8 Est GFR ( Amer) > 60 Est GFR (Non-Af Amer) > 60 Random Glucose 99 Calcium 9.2 Total Bilirubin 0.4 AST 29 ALT 35 Alkaline Phosphatase 444 H Total Protein 7.4 Albumin 4.2 Globulin 3.2 Albumin/Globulin Ratio 1.3 Lipase 68 Venous Blood Potassium 3.4 L Urine Color Yellow Urine Clarity Cloudy Urine pH 6.0 Ur Specific [place] 1.018 Urine Protein Negative Urine Glucose (UA) Neg Urine Ketones 20 Urine Blood Negative Urine Nitrate Negative Urine Bilirubin Negative Urine Urobilinogen 0.2-1.0 Ur Leukocyte Esterase Large Urine RBC (Auto) 2 Urine Microscopic WBC 51 H Ur Squamous Epith Cells 14 H Urine Bacteria Occ H 10/06/17 10/07/17 10/07/17 17:50 04:20 04:20 WBC 18.4 H 12.2 H RBC 4.75 4.16 Hgb 13.1 11.5 L Hct 38.9 34.2 MCV 81.8 82.2 MCH 27.5 27.6 MCHC 33.7 33.6 RDW 13.2 13.3 Plt Count 232 185 MPV 7.6 7.5 Neut % (Auto) 86.0 H 82.8 H Lymph % (Auto) 6.2 L 7.6 L Saline % (Auto) 7.5 9.1 Eos % (Auto) 0.1 0.2 Baso % (Auto) 0.2 0.3 Neut # (Auto) 15.8 H 10.1 H Lymph # (Auto) 1.1 0.9 L Saline # (Auto) 1.4 H 1.1 H Eos # (Auto) 0.0 0.0 Baso # (Auto) 0.0 0.0 Neutrophils % (Manual) 75 Band Neutrophils % 3 H Lymphocytes % (Manual) 12 L Monocytes % (Manual) 10 Platelet Estimate Normal Hypochromasia (manual) Slight Microcytosis (manual) Slight pO2 VBG pH VBG pCO2 VBG HCO3 VBG Total CO2 VBG O2 Sat (Calc) VBG Base Excess VBG Potassium Sodium 136 Chloride 102 Glucose Lactate FiO2 Potassium 3.3 L Carbon Dioxide 22 Anion Gap 15 BUN 6 L Creatinine 0.7 Est GFR ( Amer) > 60 Est GFR (Non-Af Amer) > 60 Random Glucose 136 H Calcium 8.2 L Total Bilirubin 0.3 AST 28 ALT 32 Alkaline Phosphatase 321 H D Total Protein 6.0 L Albumin 3.3 L D Globulin 2.7 Albumin/Globulin Ratio 1.2 Lipase Venous Blood Potassium Urine Color Urine Clarity Urine pH Ur Specific [place] Urine Protein Urine Glucose (UA) Urine Ketones Urine Blood Urine Nitrate Urine Bilirubin Urine Urobilinogen Ur Leukocyte Esterase Urine RBC (Auto) Urine Microscopic WBC Ur Squamous Epith Cells Urine Bacteria Assessment & Plan - Assessment and Plan (Free Text) Assessment: Fay Johnson is a 27F w/ hx of GERD who presents to the ED with abd pain and diarrhea Ascending and transverse colitis, etiology unknown; DDX: infectous (likely), r/ o IBD malignancy and diverticulitis Hepatic mass GERD Diarrhea; likely 2/2 colitis, r/o infectous etiology Plan: -send for c.diff, stool culture, ova and parasite, stool calprotectin -continue ceftriaxone, recommend adding flagyl for better anerobic coverage and d/c vancomycin (unless treating for extraintestional source) -will speak to radiology in regards to additional imaging for hepatic adenoma, will likely have a Triplw phase CT -hepatic mass likely Adenoma based on prolonged OCP use and age -diet as tolerated -would old loperimide, until infectous etiology is ruled out -will eventually benefit from colonoscopy, but can be as an oupt D/W Dr. Quiles
[2017-10-07] MEDS: Ciprofloxacin 400mg/200ml D5W 400 MG/200 ML BAG IVPB SCH ×2 (11:16→22:00)
[2017-10-07] MEDS ORDERED: Sodium Chloride 0.9% 50 ML IV ONE ×2 (11:21→20:52)
[2017-10-07] MEDS ORDERED: Iohexol 300 100 ML IJ ONE ×2 (11:21→20:52)
--- NOTE | 2017-10-07 11:31 | CT ---
Date of service: 10/06/2017 PROCEDURE: CT Abdomen and Pelvis with contrast HISTORY: Upper abdominal pain, diarrhea, fever COMPARISON: None. TECHNIQUE: CT scan of the abdomen and pelvis was performed after administration of intravenous contrast. Oral contrast was not administered. Coronal and sagittal reformatted images were obtained. Contrast dose: 95 mL Omnipaque 300 Radiation dose: Total exam DLP = 558.17 mGy-cm. This CT exam was performed using one or more of the following dose reduction techniques: Automated exposure control, adjustment of the mA and/or kV according to patient size, and/or use of iterative reconstruction technique. FINDINGS: LOWER THORAX: The visualized lungs are clear. LIVER: There is mild hepatomegaly and diffuse fatty infiltration in the liver. There is a 8.8 x 5.3 x 8.7 cm well-circumscribed heterogeneously enhancing mass in the subcapsular anterior right hepatic lobe. No intrahepatic biliary ductal dilatation. GALLBLADDER AND BILE DUCTS: No calcified gallstones. PANCREAS: Normal in size with homogeneous enhancement. No gross lesion or ductal dilatation. SPLEEN: There is mild splenomegaly. ADRENALS: No discrete nodule. KIDNEYS AND URETERS: Normal in size with homogeneous enhancement. No hydronephrosis. No solid mass. VASCULATURE: No aortic aneurysm. BOWEL: There are fluid-filled mildly dilated small bowel loops. There is diffuse circumferential mural thickening in the colon with mucosal enhancement and mild pericolonic inflammatory changes. No bowel obstruction. APPENDIX: Normal appendix. PERITONEUM: No free fluid. No free air. LYMPH NODES: There are enlarged right lower quadrant mesenteric lymph nodes. BLADDER: Grossly normal in appearance. REPRODUCTIVE: The uterus is normal in size. BONES: No acute fracture. Within normal limits for the patient's age. OTHER FINDINGS: None. IMPRESSION: 1. Findings are most compatible with acute nonspecific infectious/ inflammatory enterocolitis. No bowel obstruction or perforation. Right lower quadrant mesenteric lymphadenopathy, reactive/inflammatory in etiology 2. Large heterogeneously enhancing mass in the subcapsular anterior right hepatic lobe. Clinical follow-up, a dedicated CT scan/MRI with triple phase liver protocol/ core biopsy for high risk patient is recommended as clinically indicated. A preliminary report was provided by [employer].
[2017-10-07] MEDS ORDERED: Potassium Chloride 20 mEq ER Tab PO ONE (13:53)
[2017-10-07 23:57] VITALS: RESP 18
[2017-10-08] MEDS: Potassium Ch 20mEq in D5-1/2NS 1,000 ML IV SCH (00:30)
[2017-10-08] MEDS: metroNIDAZOLE 500mg/100ml NS 100 ML IVPB SCH ×2 (00:32→10:14)
[2017-10-08 07:03] LABS: BASO % 0.5 % (0.0-2.0); EOS # 0.3 K/uL (0.0-0.7); EOS % 3.2 % (0.0-4.0); HEMOGLOBIN 10.8 g/dL (12.0-16.0); LYMPH # 1.9 K/uL (1.0-4.3); LYMPH % 20.8 % (20.0-40.0); MEAN CELL VOLUME 81.3 fl (81.0-99.0); MEAN CORPUSCULAR HEMOGLOBIN 28.1 pg (27.0-31.0); MEAN CORPUSCULAR HGB CONC 34.5 g/dL (33.0-37.0); MEAN PLATELET VOLUME 7.6 fl (7.2-11.7); MONO # 1.1 K/uL (0.0-0.8); MONO % 12.1 % (0.0-10.0); NEUT # 5.7 K/uL (1.8-7.0); NEUT % 63.4 % (50.0-75.0); RBC 3.86 Mil/uL (3.80-5.20); RED CELL DISTRIBUTION WIDTH 13.7 % (11.5-14.5)
[2017-10-08 07:18] LABS: BLOOD UREA NITROGEN 2 mg/dl (7-17); CALCIUM 8.5 mg/dL (8.4-10.2); GFR AFRICAN-AMERICAN > 60; GFR NON-AFRICAN AMERICAN > 60
--- NOTE | 2017-10-08 07:32 | CP.PCM.PN ---
Subjective - Date & Time of Evaluation Date of Evaluation: 10/08/17 Time of Evaluation: 07:30 - Subjective Subjective: General surgery progress note for Dr. Mele Mata, PGY-2 Pt S & E at bedside at 0700 Pt reports epigastric abdominal pain resolved, reports hunger. Diarrhea was hourly until 4am- has not had diarrhea since then. Tolerated liquid diet, asking for more food. Denies F & C, N & V, other complaints. Per nursing- pt had CP overnight- trops neg x 2. EKG NSR. Pt clarified that she was having lung pain, not chest pain- like when one runs a lot. Afebrile. Leukocytosis resolved. Objective - Vital Signs/Intake and Output Vital Signs (last 24 hours): Temp Pulse Resp BP Pulse Ox 98.3 F 98 H 18 114/74 100 10/08/17 04:30 10/07/17 23:56 10/08/17 04:30 10/08/17 04:30 10/08/17 04:30 - Medications Medications: Current Medications Acetaminophen (Tylenol 325mg Tab) 650 mg PO Q4 PRN PRN Reason: Fever >100.4 F Last Admin: 10/07/17 05:12 Dose: 650 mg Acetaminophen/Butalbital/Caffeine (Fioricet) 1 tab PO Q4 PRN PRN Reason: Headache Last Admin: 10/07/17 13:30 Dose: 1 tab Duloxetine HCl (Cymbalta) 30 mg PO HS KAELYN Last Admin: 10/07/17 22:06 Dose: 30 mg Metronidazole (Flagyl 500mg/100ml Ns) 100 mls @ 100 mls/hr IVPB Q8 KAELYN PRN Reason: Protocol Last Admin: 10/08/17 00:32 Dose: 100 mls/hr Potassium Chloride/Dextrose/Sod Cl (Potassium Chl 20 Meq In D5-1/2ns) 1,000 mls @ 125 mls/hr IV .Q8H KAEYLN Stop: 10/08/17 08:19 Last Admin: 10/08/17 00:30 Dose: 125 mls/hr Ciprofloxacin (Cipro 400mg/200ml Dsw) 400 mg in 200 mls @ 200 mls/hr IVPB Q12 KAELYN PRN Reason: Protocol Last Admin: 10/07/17 22:00 Dose: 200 mls/hr Morphine Sulfate (Morphine) 2 mg IVP Q4 PRN PRN Reason: Pain, moderate (4-7) Last Admin: 10/07/17 06:48 Dose: 2 mg Pantoprazole Sodium (Protonix Inj) 40 mg IVP DAILY KAELYN Last Admin: 10/07/17 10:31 Dose: 40 mg - Labs Labs: 10/08/17 06:05 10/08/17 06:05 - Constitutional Appears: Non-toxic, No Acute Distress - Head Exam Head Exam: ATRAUMATIC, NORMAL INSPECTION, NORMOCEPHALIC - Eye Exam Eye Exam: EOMI, Normal appearance - ENT Exam ENT Exam: Mucous Membranes Moist, Normal Exam - Neck Exam Neck Exam: Full ROM, Normal Inspection - Respiratory Exam Respiratory Exam: NORMAL BREATHING PATTERN - Cardiovascular Exam Cardiovascular Exam: Tachycardia, +S1, +S2 - GI/Abdominal Exam GI & Abdominal Exam: Soft. absent: Distended, Firm, Guarding, Rigid, Tenderness - Extremities Exam Extremities Exam: Normal Inspection. absent: Pedal Edema - Neurological Exam Neurological Exam: Alert, Awake, CN II-XII Intact, Oriented x3 - Psychiatric Exam Psychiatric exam: Normal Affect, Normal Mood - Skin Skin Exam: Dry, Intact, Normal Color, Warm Assessment and Plan - Assessment and Plan (Free Text) Assessment: 27yo F w/ Proximal colitis and 8.8cm R hepatic mass : Afebrile Tachycardic improving- 97-107 Leukocytosis resolved- 9 from 12.2 Plan: Advanced diet Cont Abx Pain control PRN No surgical intervention If tolerating diet, may be d/c'd home on Cipro & Flagyl x 5-7 days May get MRI for liver lesion as outpatient- dw pt Further mgmt as per primary team DW attending Esperanza, PGY-2
[2017-10-08 08:15] VITALS: BP 120/76; TEMP 97.8; O2SAT 99
[2017-10-08] MEDS: Ciprofloxacin 400mg/200ml D5W 400 MG/200 ML BAG IVPB SCH (10:14)
--- NOTE | 2017-10-08 10:30 | CP.PCM.DIS ---
Provider - Provider Date of Admission: 10/06/17 21:14 Attending physician: Mk Gaston MD Time Spent in preparation of Discharge (in minutes): 30 Diagnosis - Discharge Diagnosis (1) Hypokalemia Status: Acute (2) Migraine Status: Acute (3) Colitis Status: Acute (4) Liver mass Status: Acute Hospital Course - Lab Results Lab Results: Micro Results 10/06/17 17:50 Blood-Venous Blood Culture - Preliminary NO GROWTH AFTER 24 HOURS Most Recent Lab Values WBC 9.0 K/uL (4.8-10.8) 10/08/17 06:05 RBC 3.86 Mil/uL (3.80-5.20) 10/08/17 06:05 Hgb 10.8 g/dL (12.0-16.0) L 10/08/17 06:05 Hct 31.4 % (34.0-47.0) L 10/08/17 06:05 MCV 81.3 fl (81.0-99.0) 10/08/17 06:05 MCH 28.1 pg (27.0-31.0) 10/08/17 06:05 MCHC 34.5 g/dL (33.0-37.0) 10/08/17 06:05 RDW 13.7 % (11.5-14.5) 10/08/17 06:05 Plt Count 185 K/uL (130-400) 10/08/17 06:05 MPV 7.6 fl (7.2-11.7) 10/08/17 06:05 Neut % (Auto) 63.4 % (50.0-75.0) 10/08/17 06:05 Lymph % (Auto) 20.8 % (20.0-40.0) 10/08/17 06:05 Reynolds % (Auto) 12.1 % (0.0-10.0) H 10/08/17 06:05 Eos % (Auto) 3.2 % (0.0-4.0) 10/08/17 06:05 Baso % (Auto) 0.5 % (0.0-2.0) 10/08/17 06:05 Neut # (Auto) 5.7 K/uL (1.8-7.0) 10/08/17 06:05 Lymph # (Auto) 1.9 K/uL (1.0-4.3) 10/08/17 06:05 Reynolds # (Auto) 1.1 K/uL (0.0-0.8) H 10/08/17 06:05 Eos # (Auto) 0.3 K/uL (0.0-0.7) 10/08/17 06:05 Baso # (Auto) 0.0 K/uL (0.0-0.2) 10/08/17 06:05 Neutrophils % (Manual) 75 % (42-75) 10/06/17 17:50 Band Neutrophils % 3 % (0-2) H 10/06/17 17:50 Lymphocytes % (Manual) 12 % (20-50) L 10/06/17 17:50 Monocytes % (Manual) 10 % (0-10) 10/06/17 17:50 Platelet Estimate Normal (NORMAL) 10/06/17 17:50 Hypochromasia (manual) Slight 10/06/17 17:50 Microcytosis (manual) Slight 10/06/17 17:50 pO2 38 mm/Hg (30-55) 10/06/17 17:50 VBG pH 7.42 (7.32-7.43) 10/06/17 17:50 VBG pCO2 35 mmHg (40-60) L 10/06/17 17:50 VBG HCO3 23.3 mmol/L 10/06/17 17:50 VBG Total CO2 23.8 mmol/L (22-28) 10/06/17 17:50 VBG O2 Sat (Calc) 85.0 % (40-65) H 10/06/17 17:50 VBG Base Excess -1.3 mmol/L (0.0-2.0) L 10/06/17 17:50 VBG Potassium 3.4 mmol/L (3.6-5.2) L 10/06/17 17:50 Sodium 131.0 mmol/L (132-148) L 10/06/17 17:50 Chloride 99.0 mmol/L (98-107) 10/06/17 17:50 Glucose 102 mg/dL (65-105) 10/06/17 17:50 Lactate 1.5 mmol/L (0.7-2.1) 10/06/17 17:50 FiO2 21.0 % 10/06/17 17:50 Sodium 140 mmol/l (132-148) 10/08/17 06:05 Potassium 3.9 MMOL/L (3.6-5.0) 10/08/17 06:05 Chloride 108 mmol/L (98-107) H 10/08/17 06:05 Carbon Dioxide 23 mmol/L (22-30) 10/08/17 06:05 Anion Gap 13 (10-20) 10/08/17 06:05 BUN 2 mg/dl (7-17) L 10/08/17 06:05 Creatinine 0.6 mg/dl (0.7-1.2) L 10/08/17 06:05 Est GFR ( Amer) > 60 10/08/17 06:05 Est GFR (Non-Af Amer) > 60 10/08/17 06:05 Random Glucose 114 mg/dL (65-105) H 10/08/17 06:05 Calcium 8.5 mg/dL (8.4-10.2) 10/08/17 06:05 Total Bilirubin 0.3 mg/dl (0.2-1.3) 10/07/17 04:20 AST 28 U/L (14-36) 10/07/17 04:20 ALT 32 U/L (9-52) 10/07/17 04:20 Alkaline Phosphatase 321 U/L (38-126) H D 10/07/17 04:20 Troponin I < 0.0120 ng/mL (0.00-0.120) 10/08/17 06:05 Total Protein 6.0 G/DL (6.3-8.2) L 10/07/17 04:20 Albumin 3.3 g/dL (3.5-5.0) L D 10/07/17 04:20 Globulin 2.7 gm/dL (2.2-3.9) 10/07/17 04:20 Albumin/Globulin Ratio 1.2 (1.0-2.1) 10/07/17 04:20 Lipase 68 U/L (23-300) 10/06/17 17:50 Venous Blood Potassium 3.4 mmol/L (3.6-5.2) L 10/06/17 17:50 Urine Color Yellow (YELLOW) 10/06/17 17:12 Urine Clarity Cloudy (Clear) 10/06/17 17:12 Urine pH 6.0 (5.0-8.0) 10/06/17 17:12 Ur Specific [place] 1.018 (1.003-1.030) 10/06/17 17:12 Urine Protein Negative mg/dL (NEGATIVE) 10/06/17 17:12 Urine Glucose (UA) Neg mg/dL (Normal) 10/06/17 17:12 Urine Ketones 20 mg/dL (NEGATIVE) 10/06/17 17:12 Urine Blood Negative (NEGATIVE) 10/06/17 17:12 Urine Nitrate Negative (NEGATIVE) 10/06/17 17:12 Urine Bilirubin Negative (NEGATIVE) 10/06/17 17:12 Urine Urobilinogen 0.2-1.0 mg/dL (0.2-1.0) 10/06/17 17:12 Ur Leukocyte Esterase Large Daniel/uL (Negative) 10/06/17 17:12 Urine RBC (Auto) 2 /hpf (0-3) 10/06/17 17:12 Urine Microscopic WBC 51 /hpf (0-5) H 10/06/17 17:12 Ur Squamous Epith Cells 14 /hpf (0-5) H 10/06/17 17:12 Urine Bacteria Occ (<OCC) H 10/06/17 17:12 C. difficile Ag & Toxin Negative (NEGATIVE) 10/07/17 08:51 - Hospital Course Hospital Course: diarrhea,abdominal pains and headache resolved fever resolved chest pain resolved [id number] Discharge Exam - Head Exam Head Exam: ATRAUMATIC, NORMAL INSPECTION, NORMOCEPHALIC - Eye Exam Eye Exam: EOMI, Normal appearance, PERRL Pupil Exam: NORMAL ACCOMODATION, PERRL - GI/Abdominal Exam GI & Abdominal Exam: Normal Bowel Sounds - Rectal Exam Rectal Exam: NORMAL INSPECTION - Neurological Exam Neurological exam: Alert, CN II-XII Intact, Normal Gait, Oriented x3, Reflexes Normal - Psychiatric Exam Psychiatric exam: Normal Affect, Normal Mood - Skin Skin Exam: Dry, Intact, Normal Color, Warm Discharge Plan - Follow Up Plan Condition: FAIR Disposition: HOME/ ROUTINE Patient education suggested?: Yes Additional Instructions: follow up with primary care physician pt advised to have liver mass evaluated as outpt she will also see her pmd for referral to cardiology for out pt stress test will give flagyl and cipro x 5 days
[2017-10-08 13:07] VITALS: PULSE 88
--- NOTE | 2017-10-08 13:45 | CARD ---
APPROVED REPORT Date of service: 10/07/2017 EKG Measurement Heart [id number] <Conclusion> Normal sinus rhythm Possible Left atrial enlargement Possible Inferior infarct, age undetermined Abnormal ECG
--- NOTE | 2017-10-08 16:16 | CT ---
Date of service: 10/07/2017 PROCEDURE: CT Abdomen and Pelvis with and without intravenous contrast HISTORY: eval hepatic mass COMPARISON: 10/06/2017 TECHNIQUE: Axial images of the abdomen were obtained in the pre contrast, portal venous and delayed phases of enhancement. Coronal and sagittal reformats were generated. Contrast dose: 95 mL Omnipaque 300 Radiation dose: Total exam DLP = 954.50 mGy-cm. This CT exam was performed using one or more of the following dose reduction techniques: Automated exposure control, adjustment of the mA and/or kV according to patient size, and/or use of iterative reconstruction technique. FINDINGS: LOWER THORAX: Unremarkable. LIVER: Normal size and contour. There is a large mass in the right lobe of the liver. This measures approximately 5.2 x 9.8 x 9.3 cm. It has irregular borders. It enhances extensively, in a heterogeneous fashion, on arterial phase imaging and there is no washout on portal venous phase imaging. There is no central scar evident. There is no other mass identified. GALLBLADDER AND BILE DUCTS: Unremarkable. PANCREAS: Unremarkable. No gross lesion or ductal dilatation. SPLEEN: Unremarkable. ADRENALS: Unremarkable. No mass. KIDNEYS AND URETERS: 10 mm rounded low-density mass in the upper pole left kidney, too small to characterize but most likely cortical cyst. No other renal mass. No calculus or hydronephrosis. VASCULATURE: Unremarkable. No aortic aneurysm. BOWEL: Diffuse circumferential mural thickening of the colon consistent with nonspecific liu colitis. This is similar in appearance to 10/06/2017. No bowel obstruction. No abnormal small bowel loops are appreciated. APPENDIX: Normal appendix. PERITONEUM: Unremarkable. No free fluid. No free air. LYMPH NODES: Unremarkable. No enlarged lymph nodes. BLADDER: Unremarkable. REPRODUCTIVE: Normal uterus BONES: No acute fracture. OTHER FINDINGS: None. IMPRESSION: 9.8 cm irregular enhancing mass in the right lobe of the liver. This is suspicious for date hepatic cellular malignancy. Further evaluation with percutaneous biopsy is advised. Nonspecific pancolitis noted.
== END 2017-10-08 14:00 | disposition home or self-care (01) | DRG 392 ==
LOC: H.ER 16:18 → H.ERHOLD 21:14 → H.TEL 23:13
PROVIDERS: ADMIT Internal Medicine Pulmonary Disease; ATTEND Internal Medicine Pulmonary Disease
DX: K52.9 Noninfective gastroenteritis and colitis, unspecified (principal); N39.0 Urinary tract infection, site not specified; E87.6 Hypokalemia; M79.7 Fibromyalgia; J45.990 Exercise induced bronchospasm; K21.9 Gastro-esophageal reflux disease without esophagitis; F41.9 Anxiety disorder, unspecified; G43.909 Migraine, unspecified, not intractable, without status migrainosus; R16.0 Hepatomegaly, not elsewhere classified; T38.4X5A Adverse effect of oral contraceptives, initial encounter; I88.0 Nonspecific mesenteric lymphadenitis